=== PATIENT | female | born 1995 | race Asian ===

== ENCOUNTER 2023-08-19 10:06 | Outpatient (REF) | payer OTHER, SELFPAY ==
--- NOTE | ~2023-08-19 | US_ITS ---
EXAMINATION: US PELVIS LIMITED (BLADDER) CLINICAL INFORMATION: Dysuria, recurrent UTIs. COMPARISON: None available. TECHNIQUE: Real-time imaging of the bladder. FINDINGS: BLADDER: Well distended. Bilateral ureteral jets are demonstrated. Prevoid bladder volume is 281 mL. Postvoid bladder volume is 33 mL. 0.2 x 0.3 x 0.3 cm echogenic, nonmobile focus is seen within the left posterior bladder wall. No associated distal shadowing. This appears adherent to the bladder wall. US/US bladder IMPRESSION: 1. Small post void residual. 2. 0.3 cm echogenic, nonmobile focus is seen within the left posterior bladder wall. This appears adherent to the bladder wall.? Embedded bladder stone.
== END 2023-08-19 10:07 | disposition home or self-care (01) ==
LOC: HO.UMASIMG 10:06
PROVIDERS: Visit Provider Family Medicine
DX: R30.0 Dysuria (principal); Z87.440 Personal history of urinary (tract) infections
CPT/HCPCS: 76857

== ENCOUNTER 2023-09-28 11:05 | Outpatient (REF) | payer OTHER, SELFPAY ==
--- NOTE | ~2023-09-28 | US_ITS ---
EXAMINATION: US PELVIS COMPLETE CLINICAL INFORMATION: Irregular menses COMPARISON: None TECHNIQUE: Transabdominal and transvaginal imaging was performed. FINDINGS: The uterus is of normal size and echogenicity measuring 5.8 x 3.1 x 4.9 cm. A regular homogeneous endometrium is identified measuring 1 cm. Arcuate morphology of the uterus. There is small volume of fluid within the endocervical canal. Both ovaries are of normal size and echogenicity. The right measures 2.2 x 1.4 x 2.5 cm for a volume of 6.2 mL. The left measures 2.8 x 2.4 x 2.2 cm for a volume of 7.1 mL. There is trace physiologic volume simple pelvic pelvic free fluid. US/US pelvic and transvaginal IMPRESSION: 1. Arcuate morphology of the uterus. 2. Small volume of fluid within the endocervical canal. 3. Unremarkable sonographic appearance of the ovaries.
== END 2023-09-28 11:06 | disposition home or self-care (01) ==
LOC: HO.UMASIMG 11:05
PROVIDERS: Visit Provider Family Medicine
DX: N92.6 Irregular menstruation, unspecified (principal)
CPT/HCPCS: 76830; 76856